=== PATIENT | female | born 1985 | race Caucasian/White ===

== ENCOUNTER 2021-12-22 15:07 | Emergency (ER) | payer OTHER | END 2021-12-22 17:42 | disposition home or self-care (01) | LOC: ER1 15:07 | DX: S00.81XA Abrasion of other part of head, initial encounter (principal); F17.290 Nicotine dependence, other tobacco product, uncomplicated; V86.69XA Passenger of other special all-terrain or other off-road motor vehicle injured in nontraffic accident, initial encounter; Y92.410 Unspecified street and highway as the place of occurrence of the external cause | CPT/HCPCS: 70450; 71045; 73090; 73110; 73130; 99283 ==